=== PATIENT | female | born 2000 | race Caucasian/White ===

== ENCOUNTER → 2022-08-08 | Outpatient (CLI) | payer OTHER ==
[2022-08-08 15:49] LABS: HEMATOCRIT 42.9 % (36.0-47.0); MEAN CORPUSCULAR HEMOGLOBIN 28.3 pg (27.0-33.0); MEAN CORPUSCULAR HGB CONC 32.6 g/dl (32.0-36.5); MEAN CORPUSCULAR VOLUME 86.8 fl (80.0-96.0); PLATELET COUNT, AUTOMATED 340 10^3/uL (150-450); RED BLOOD COUNT 4.94 10^6/uL (4.00-5.40); WHITE BLOOD COUNT 10.2 10^3/uL (4.0-10.0)
[2022-08-08 16:46] LABS: HIV 1&2 SCREEN NEGATIVE (NEGATIVE)
[2022-08-08 16:53] LABS: HEPATITIS C VIRUS ABY INDEX < 0.0 INDEX (<0.8)
[2022-08-08 17:20] LABS: GC DNA AMPLIFICATION NEGATIVE (NEGATIVE)
== END ==
LOC: M PLALAB 14:16
PROVIDERS: ATTEND Advanced Practice Midwife
DX: Z34.01 Encounter for supervision of normal first pregnancy, first trimester (principal)

== ENCOUNTER → 2022-09-05 | Outpatient (CLI) | payer OTHER | LOC: M PLALAB 09:26 | PROVIDERS: ATTEND Obstetrics & Gynecology | DX: Z34.01 Encounter for supervision of normal first pregnancy, first trimester (principal) ==

== ENCOUNTER → 2022-10-02 | Outpatient (REF) | payer OTHER ==
[2022-10-02 18:59] LABS: HEMATOCRIT 38.7 % (36.0-47.0); HEMOGLOBIN 12.6 g/dl (12.0-15.5); MEAN CORPUSCULAR HEMOGLOBIN 28.5 pg (27.0-33.0); MEAN CORPUSCULAR HGB CONC 32.6 g/dl (32.0-36.5); MEAN CORPUSCULAR VOLUME 87.6 fl (80.0-96.0); PLATELET COUNT, AUTOMATED 290 10^3/uL (150-450); RED BLOOD COUNT 4.42 10^6/uL (4.00-5.40); WHITE BLOOD COUNT 11.9 10^3/uL (4.0-10.0)
[2022-10-02 19:09] LABS: TOTAL PROTEIN,RANDOM URINE 9.7 MG/DL (0.0-14.0)
[2022-10-02 19:11] LABS: URIC ACID 4.3 MG/DL (3.1-7.8)
[2022-10-02 19:12] LABS: LDH LACTATE DEHYDROGENASE 164 U/L (120-246)
[2022-10-02 19:13] LABS: ALT/SGPT < 9 U/L (7.0-40); AST/SGOT < 8 U/L (<34); BILIRUBIN,TOTAL 0.3 MG/DL (0.3-1.2); CREATININE FOR GFR 0.51 MG/DL (0.55-1.30); GLOMERULAR FILTRATION RATE > 60.0 (>60)
[2022-10-02 19:14] LABS: CREATININE,RANDOM URINE 116.9 MG/DL
== END ==
LOC: M PLALAB 17:14
PROVIDERS: ATTEND Obstetrics & Gynecology
DX: O16.9 Unspecified maternal hypertension, unspecified trimester (principal); Z3A.00 Weeks of gestation of pregnancy not specified

== ENCOUNTER → 2022-11-05 | Outpatient (CLI) | payer OTHER | LOC: M WHC 07:01 | PROVIDERS: ATTEND Obstetrics & Gynecology | DX: O16.2 Unspecified maternal hypertension, second trimester (principal); O32.1XX0 Maternal care for breech presentation, not applicable or unspecified; Z3A.20 20 weeks gestation of pregnancy ==

== ENCOUNTER → 2022-12-03 | Outpatient (CLI) | payer OTHER | LOC: M WHC 06:57 | PROVIDERS: ATTEND Advanced Practice Midwife | DX: Z34.02 Encounter for supervision of normal first pregnancy, second trimester (principal) ==

== ENCOUNTER → 2023-01-18 | Outpatient (CLI) | payer OTHER | LOC: M WHC 09:14 | PROVIDERS: ATTEND Obstetrics & Gynecology | DX: O10.919 Unspecified pre-existing hypertension complicating pregnancy, unspecified trimester (principal); Z3A.30 30 weeks gestation of pregnancy ==

== ENCOUNTER → 2023-02-19 | Outpatient (REF) | payer OTHER | LOC: M SFHCWAGY 12:55 | PROVIDERS: ATTEND Obstetrics & Gynecology | DX: Z36.89 Encounter for other specified antenatal screening (principal); Z3A.35 35 weeks gestation of pregnancy ==